=== PATIENT | female | born 1965 | race Asian ===

== ENCOUNTER 2017-06-13 07:33 | Day surgery (SDC) | payer MEDICARE ==
[~2017-06-13 07:33] MED LIST: Buffered Lidocaine 0.9% SYRIN* 5 ML/SYR SYRINGE INTRADERM ONE; Sodium Citrate/Citric Acid* 15 ML UDC PO ONE
[2017-06-13] MEDS ORDERED: Sodium Citrate/Citric Acid* 15 ML UDC ONE (07:49)
[2017-06-13] MEDS ORDERED: Buffered Lidocaine 0.9% SYRIN* 5 ML/SYR SYRINGE ONE (07:49)
[2017-06-13 08:31] LABS: BUN/Creatinine Ratio 21.7 (8-20); Calcium 9.2 mg/dL (8.6-10.3); Potassium 3.6 mmol/L (3.5-5.0)
[2017-06-13] MEDS ORDERED: Lidocaine 2% PF * 5 ML VIAL ONE (09:00)
[2017-06-13] MEDS ORDERED: Propofol* 10 MG/ML 20 ML BTL IV PUSH ONE (09:00)
[2017-06-13] MEDS ORDERED: fentaNYL* 50 MCG/ML 2 ML VIAL (100 MCG VIAL) ONE ×2 (09:02→10:06)
[2017-06-13 09:05] LABS: HDL Cholesterol 95.9 mg/dL
[2017-06-13] MEDS ORDERED: Ibuprofen TAB* 600 MG PO PRN (09:57)
[2017-06-13] MEDS ORDERED: oxyCODONE/Acetamin 5/325 MG* TAB PO PRN (09:57)
[2017-06-13] MEDS: fentaNYL* 50 MCG/ML 2 ML VIAL (100 MCG VIAL) IV PRN ×4 (10:05→10:45)
[2017-06-13] MEDS ORDERED: Ibuprofen TAB* 600 MG ONE (10:30)
[2017-06-13 11:05] VITALS: BP 135/86
--- NOTE | 2017-06-14 02:12 | OP ---
DATE OF OPERATION: 06/13/17 - FORMERLY [facility] DATE OF : 65 SURGEON: Ariane Ott MD ANESTHESIOLOGIST: Dr. Elie Mancuso. ANESTHESIA: General endotracheal anesthesia. PRE-OP DIAGNOSES: Postmenopausal bleeding, thickened endometrium. POST-OP DIAGNOSES: Postmenopausal bleeding, thickened endometrium. OPERATIVE PROCEDURE: Dilatation curettage hysteroscopy, polypectomy. PATHOLOGY: Pending. ESTIMATED BLOOD LOSS: Minimal, less than 20 cc. FINDINGS: Small retroverted uterus. There were two polyps or fibroids seen, and they were on the left fundus of the uterus. Otherwise, atrophic-appearing endometrium. COMPLICATIONS: None. COUNTS: Sponge, lap, and needle count were correct x2. CONDITION: The patient was brought to recovery room awake and in stable condition. DESCRIPTION OF PROCEDURE: The patient was brought to the operating room and general anesthesia was found to be adequate. The patient prepped and draped in the usual sterile fashion in the dorsal lithotomy position. Exam under anesthesia was performed with the above findings noted. A speculum was placed in the vagina. Anterior lip of the cervix was grasped with a single-tooth tenaculum and the cervix was gently and easily dilated using the Hegar dilators. Cervix was dilated to a size 8 Hegar dilator and MyoSure was advanced with the above findings noted. The masses were easily removed with the MyoSure and sent to Pathology. The MyoSure was removed from the cervix. The single-tooth tenaculum was removed from the anterior lip of the cervix. There was some oozing from one tenaculum site. Pressure was held with the polyp forceps. Excellent hemostasis was achieved. All instruments removed from the vagina and the patient was brought to the recovery room awake and in stable condition. [id number]/[facility] #: [id number] [facility]
== END 2017-06-13 11:25 | disposition home or self-care (01) ==
LOC: OR 07:33
PROVIDERS: ATTEND Obstetrics & Gynecology
DX: N95.0 Postmenopausal bleeding (principal); N84.0 Polyp of corpus uteri; E23.2 Diabetes insipidus; D33.2 Benign neoplasm of brain, unspecified; Z79.899 Other long term (current) drug therapy
CPT/HCPCS: 36415; 80048; 80061; 88305; A9270-GY; J2704; J3010